=== PATIENT | male | born 1950 | race Caucasian/White ===

== ENCOUNTER → 2019-02-11 09:34 | Outpatient (CLI) | payer MEDICARE, OTHER, SELFPAY ==
[2019-02-11 11:18] LABS: Amphetamine Urine VISTA NEGATIVE (<1000 ng/mL); Barbiturate Urine VISTA NEGATIVE (< 200 ng/mL); Benzodiazepine Urine VISTA NEGATIVE (< 200 ng/mL); Cocaine Urine VISTA NEGATIVE (< 300 ng/mL); Ecstacy Urine VISTA NEGATIVE (< 500 ng/mL); Methadone Urine VISTA NEGATIVE (< 300 ng/mL); PCP Urine VISTA NEGATIVE (< 25 ng/mL); THC Urine VISTA NEGATIVE (< 50 ng/mL); Vista UDS pH Range 6
== END ==
PROVIDERS: Referring Provider Anesthesiology Pain Medicine; Visit Provider Anesthesiology Pain Medicine
DX: F11.20 Opioid dependence, uncomplicated (principal)
CPT/HCPCS: 36415; 80307

== ENCOUNTER → 2020-10-06 13:00 | Outpatient (CLI) | payer MEDICARE, OTHER, SELFPAY ==
[2020-09-23 15:57] VITALS: BMI 24.0
--- NOTE | 2020-10-06 13:02 | ECHOD_ITS ---
Reason For Study: VALVE REPLACEMENT EVAL Procedure This was a 2D Doppler, Color Flow transthoracic echocardiogram. Exam performed in department. Left Ventricle Normal LV size. Left ventricular systolic function is normal. The estimated ejection fraction is 55 %. Stage 2 diastolic dysfunction. Right Ventricle Normal RV size. Normal systolic function. Atria Normal left atrium. Normal right atrium. Mitral Valve Trivial eccentric mitral valve insufficiency. An annuloplasty ring is noted in the mitral position. Status post mitral valve repair. Tricuspid Valve Normal tricuspid valve. Mild tricuspid valve insufficiency. Pulmonary artery systolic pressure is 30 mmHg. Aortic Valve Normal aortic valve. Trisinus/trileaflet aortic valve. Pulmonic Valve Normal pulmonic valve. Great Vessels Normal aortic root. The pulmonary artery is normal size. Inferior vena cava collapse with sniff. Pericardium/Pleural No pericardial effusion. MMode/2D Measurements & Calculations LVIDd: 4.4 cm IVSd: 1.3 cm Ao root diam: 3.7 cm LVIDs: 3.4 cm LVPWd: 1.2 cm RVDd: 3.5 cm FS: 21.7 % LAV(MOD-bp): 71.2 ml LVAd ap4: 31.3 cm2 SV(MOD-sp4): 47.2 ml LAV(MOD-bp) Indexed: 36.0 ml/m2 EDV(MOD-sp4): 105.8 ml LAV(MOD-sp2): 72.6 ml EDV(sp4-el): 106.4 ml LAV(MOD-sp4): 63.0 ml LVAs ap4: 21.9 cm2 ESV(MOD-sp4): 58.6 ml ESV(sp4-el): 56.3 ml EF(MOD-sp4): 44.6 % EF(sp4-el): 47.1 % SV(sp4-el): 50.1 ml LA A4 area: 20.7 cm2 LA dimension(2D): 4.4 cm RA A4 area: 20.0 cm2 Time Measurements MV dec time: 0.24 sec Doppler Measurements & Calculations MV E max mario: 138.1 cm/sec Lat Peak E' Mario: 10.6 cm/sec Med Peak E' Mario: 9.2 cm/sec MV A max amrio: 69.7 cm/sec E/E' lat: 13.1 E/E' med: 15.1 MV E/A: 2.0 MV P1/2t max mario: 124.2 cm/sec Ao V2 max: 88.4 cm/sec LV V1 max: 61.5 cm/sec MV P1/2t: 107.2 msec Ao max P.1 mmHg LV V1 max P.5 mmHg MV dec slope: 339.4 cm/sec2 MVA(P1/2t): 2.1 cm2 PA V2 max: 99.3 cm/sec TR max mario: 254.0 cm/sec MV P1/2t-pr_phl: 101.0 msec TR max P.8 mmHg Interpretation Summary Status post mitral valve repair. Normal LV size. Left ventricular systolic function is normal. The estimated ejection fraction is 55 %. An annuloplasty ring is noted in the mitral position. Mild tricuspid valve insufficiency. Pulmonary artery systolic pressure is 30 mmHg. Stage 2 diastolic dysfunction. Ordering Physician: Selvin Rick Referring Physician: NIXON HUGGINS Performed By: Alecia Chen RDCS
== END ==
PROVIDERS: PCP Physician Assistant; Referring Provider Internal Medicine Cardiovascular Disease; Visit Provider Internal Medicine Cardiovascular Disease
DX: I34.0 Nonrheumatic mitral (valve) insufficiency (principal)
CPT/HCPCS: 93306

== ENCOUNTER → 2020-12-10 08:11 | Outpatient (CLI) | payer MEDICARE, OTHER, SELFPAY ==
[2020-09-23 15:57] VITALS: BMI 24.0
--- NOTE | 2020-12-10 08:16 | MRI_ITS ---
STUDY: MRI LUMBAR SPINE WITHOUT CONTRAST REASON FOR EXAM: Male, 70 years old. back pain, left leg pain TECHNIQUE: Standardized fat and water weighted pulse sequences were obtained in the sagittal and axial planes. COMPARISON: 01/17/2011 FINDINGS: T12-L1: Normal endplates. Normal disc height, hydration and morphology. Normal bilateral facet joints. Normal central canal and bilateral lateral recesses. Normal bilateral intervertebral neural foramina. Normal lumbar lordosis. There is no substantial scoliosis. Normal conus medullaris that terminates at the T12/L1. L1-2: Normal endplates. Normal disc height, hydration and morphology. Normal bilateral facet joints. Normal central canal and bilateral lateral recesses. Normal bilateral intervertebral neural foramina. L2-3: Normal endplates. Normal disc height, hydration and morphology. Normal bilateral facet joints. Normal central canal and bilateral lateral recesses. Normal bilateral intervertebral neural foramina. L3-4: Mild bilateral facet hypertrophy and ligament flavum hypertrophy. Mild bilobed disc protrusion produces mild spinal stenosis and mild bilateral neural foraminal stenosis. L4-5: Mild bilateral facet hypertrophy and ligament flavum hypertrophy. No change in the mild broad disc protrusion which produces mild spinal stenosis and mild bilateral neural foraminal stenosis. L5-S1: 2 mm retrolisthesis of L5 on S1 which is unchanged. Further loss of disc height but no disc protrusion or extrusion. Mild spinal stenosis with mild bilateral lateral recess stenosis and mild bilateral neural foraminal stenosis which is unchanged. Normal visualized sacral ala. Normal visualized paraspinous soft tissue structures. MRI/Spine Lumbar (Routine) IMPRESSION: Worsening degenerative disc disease L3/L4 but overall mild degenerative disc disease with no severe spinal stenosis or neural foraminal stenosis. Electronically Signed: Gregorio Patel MD at 10:23 EST Tel , Service support ,
== END ==
PROVIDERS: PCP Physician Assistant; Referring Provider Anesthesiology Pain Medicine; Visit Provider Anesthesiology Pain Medicine
DX: M54.9 Dorsalgia, unspecified (principal); M79.662 Pain in left lower leg
CPT/HCPCS: 72148

== ENCOUNTER 2020-12-24 13:56 | Inpatient (IN) | payer MEDICARE, OTHER, SELFPAY ==
[2020-09-23 15:57] VITALS: BMI 24.0
[2020-12-24 13:58] VITALS: BP 132/92; PULSE 98; RESP 16; TEMP 36.1; O2SAT 97; BMI 23.7
--- NOTE | 2020-12-24 14:24 | CT_ITS ---
We are attempting to reach an attending provider to discuss findings. An addendum with communication details will be sent when the communication is complete. STUDY: CT SOFT TISSUE NECK WITH CONTRAST REASON FOR EXAM: Male, 70 years old. Right neck swelling and amp; jaw pain x 3 days, now trouble swallowing, on antibiotics for dental abscess?? Hx mitral valve repair, COPD, ablation for arrhythmia, hypertension. RADIATION DOSAGE (If Supplied By Facility): CTDIvol = ( 16.36 ) mGy, DLP = ( 596.79 ) mGycm TECHNIQUE: The patient was scanned in a multi-detector CT scanner. High resolution transaxial imaging was performed following intravenous administration of IV 75mL Isovue-370. Sagittal and coronal images were reconstructed. Individualized dose optimization techniques were used for this CT. COMPARISON: None. FINDINGS: There is inflammation in the submental, sublingual and right submandibular subcutaneous and deep compartments with reactive lymph nodes. There are no fluid collections or masses. Tongue proper is normal. Airway is patent. Oral cavity is suboptimally evaluated due to metallic artifact from dental hardware. However, there is no dental abscess. Paranasal sinuses and orbits are clear. Vocal cords are normal. There is asymmetric density in the right vallecula, possibly mucus versus surface lesion. Epiglottis is otherwise normal. There is no cervical lymphadenopathy. Carotids and jugulars are patent. Salivary and thyroid gland are normal. Lungs are severely emphysematous. CT/Soft Tissue Neck WITH Contrast IMPRESSION: 1. Infection of submental, sublingual and right submandibular spaces. Possibility of impending Korey''s angina and airway obstruction is raised and emergency ENT consultation is advised. 2. No neck abscess. 3. Possible right vallecular lesion. ENT referral is advised for endoscopy to evaluate for mucosal disease. Electronically Signed: Barbie Milner MD at 16:10 EST Tel , Service support ,
--- NOTE | 2020-12-24 14:43 | ED.VISSUMM ---
- ER Visit Summary Date of Service: 12/24/20 Chief Complaint: Dental pain jaw swelling History of Present Illness: The patient is a 70 M who presents with dental pain and jaw swelling that has been getting worse over the past 5 days. Patient describes the pain as aching. Patient states the pain is over the right lower jaw. Patient states it is gradually gotten worse. Patient states she has been taking Keflex which his dentist prescribed for the past 3 days. Patient states his pain improves with ibuprofen. Patient also admits to some hot and cold sensitivity. Patient denies any fevers or chills. Patient states he was having some difficulty swallowing today. Physical Examination: Vital signs are stable. Patient is afebrile. Patient is in no acute distress. Oral mucosa is pink and moist. Oropharynx is clear. Airway is patent. There is tenderness to percussion over the right lower molars. There is some edema in this area. There is no fluctuance over the gingiva. Neck is supple. Trachea is midline. There is some mild erythema and tenderness over the right lower jaw. There is some minimal tenderness in the sublingual area. There is no induration. Heart was regular rate and rhythm. Lungs are clear and equal bilaterally. Cranial nerves II through XII are intact. There are no focal motor or sensory deficits. Test Results: CBC and basic metabolic profile were obtained were within normal limits. CT scan of the soft tissue neck is ordered and is pending. Emergency Department Course and Treatment: Patient was given a dose of clindamycin here due to his penicillin allergy. Disposition: [] Impression: Dental abscess This note was generated with [employer] dictation software. It may contain incorrect words, spelling, and punctuation that were not noted in review of the chart prior to signing ED Disposition - Plan for ED Patient: Disposition: Home or Assisted Living Diagnosis: Dental abscess Instructions: ED Dental Abscess Prescriptions: Clindamycin HCl [Cleocin] 300 mg PO Q6H #40 cap Prescription Printed Referrals: Lidia Lundy PA [Primary Care Provider] - Additional Instructions: Follow-up with your dentist in 3 to 5 days.
[2020-12-24 14:53] LABS: Absolute Lymphocyte Count 1.21 X10^3/uL (0.83-4.51); Absolute Neutrophil Count 7.2 X10^3/uL (2.0-7.7); Basophil# 0.03 X10^3/uL; Basophil% 0.3 % (0-1); Eosinophil# 0.08 X10^3/uL; Eosinophils% 0.8 % (0-5); Hematocrit 39.8 % (40-54); Hemoglobin 13.2 g/dL (13.0-16.5); Lymphocyte # 1.21 X10^3/ul (4.0); Lymphocyte % 12.6 % (19-41); Mean Corp Hgb Conc 33.2 g/dL (32-36); Mean Corpuscular Volume 90.5 fL (80-94); Mean Platelet Vol. 8.9 fl (6.2-12.0); Monocyte# 1.02 X10^3/uL; Monocyte% 10.6 % (0-10); NRBC Flagged by Analyzer 0 % (0-5); Neutrophil # 7.23 X10^3/uL (2.7-7.7); Neutrophil % 75.5 % (47-70); Platelet Count 249 K/mm3 (150-450); RBC Distribution Width CV 12.3 % (11.6-14.6); RBC Distribution Width SD 40.9 fl (35.1-43.9); White Blood Count 9.6 K/mm3 (4.4-11.0)
[2020-12-24 15:07] LABS: Anion Gap 5 (5-15); BUN 12 mg/dL (7-18); BUN/Creat Ratio 14.3 RATIO (10-20); Calcium,Total 9.1 mg/dL (8.5-10.1); Chloride 103 mmol/L (98-107); Creatinine, Serum 0.84 mg/dL (0.70-1.30); EST Glomerular Filtration Rate 97 mL/min (>60); Est Glom Filt Rate - Afr Amer 117 mL/min (>60); Estimated Creatinine Clearance 89.64 ml/min; Glucose 101 mg/dL (74-106); Potassium 3.9 mmol/L (3.5-5.1); Sodium Level 138 mmol/L (136-145)
[2020-12-24] MEDS: Ondansetron 4 MG/2 ML Vial IV (16:38)
[2020-12-24] MEDS: morphine 8 MG/ML Syringe IV (16:38)
[2020-12-24 16:46] VITALS: BP 134/90; PULSE 85; RESP 16; O2SAT 94
[2020-12-24 17:41] VITALS: BP 132/78; PULSE 84; RESP 16; TEMP 37.2; O2SAT 100
--- NOTE | 2020-12-24 17:52 | HP.PCM_ITS ---
Problem List (1) Odontogenic infection of jaw Status: Acute History of Present Illness Date of Admission: 12/24/20 Chief Complaint: Joint swelling and pain redness x 3 days The patient is a 70 year old M with a history of root canal treatment to the last 2 teeth of the right lower jaw about a year ago. Early last week began having discomfort and throbbing involving the teeth and jaw on that same side. Presented to his dentist 3 days ago and was prescribed antibiotics [Keflex], however symptoms have continued to worsen. He admits to some change in his voice/dysphonia as well as difficulty swallowing solids. He has been able to swallow liquids difficulty. He denies any difficulty breathing or noisy breathing. Questionable fever. Denies any chills or rigors. [] Past Medical History Past Medical History (Chronic Problems): Chronic Problems (Last Reviewed 09/23/20 @ 16:[address] Selvin Rick MD) Nonrheumatic mitral (valve) insufficiency (Chronic) History of mitral valve repair (Chronic 03/08/04) MVR repair after a quadrangular resection and application of a 28mm band and cryoablation of pulmonary vein 03/08/04 Paroxysmal atrial fibrillation (Chronic) Essential (primary) hypertension (Chronic) HLD (hyperlipidemia) (Chronic) Nicotine dependence (Chronic) Medical History: Medical History (Last Reviewed 09/23/20 @ 16:[address] Selvin Rick MD) Nonrheumatic mitral (valve) insufficiency (Chronic) I34.0 Paroxysmal atrial fibrillation (Chronic) I48.0 Essential (primary) hypertension (Chronic) I10 HLD (hyperlipidemia) (Chronic) E78.5 Nicotine dependence (Chronic) F17.200 Allergies amoxicillin [From Augmentin] Adverse Reaction (Verified 12/24/20 13:58) diarrhea clavulanic acid [From Augmentin] Adverse Reaction (Verified 12/24/20 13:58) diarrhea Home Medications: Ambulatory Orders Medication Instructions Recorded cycloBENZAPRine HCl [Flexeril] 10 mg PO DAILY 04/13/17 dextroamphetamine-amphetamine 20 20 mg PO DAILY #30 tab 08/13/19 mg tablet metoprolol succinate 50 mg 50 mg PO DAILY #90 tab 09/20/20 tablet,extended release 24 hr aspirin 81 mg tablet,delayed 81 mg PO .QOD tab 09/23/20 release losartan 100 mg tablet 100 mg PO DAILY #90 tab 09/23/20 meloxicam 15 mg tablet 15 mg PO DAILY tab 09/23/20 Cephalexin [Keflex] 500 mg PO Q8 12/24/20 Cetirizine HCl [Zyrtec] 10 mg PO DAILY 12/24/20 Cholecalciferol (Vitamin D3) 5,000 unit PO DAILY 12/24/20 [Vitamin D3] Clindamycin HCl [Cleocin] 300 mg PO Q6H #40 cap 12/24/20 Hydrochlorothiazide [Hctz] 12.5 mg PO DAILY 12/24/20 Multivitamin with Minerals 1 ea PO 12/24/20 [Multiple Vitamin] Surgical History: Surgical History (Last Reviewed 09/23/20 @ 16:[address] Selvin Rick MD) History of mitral valve repair (Chronic) Onset Date: 03/08/04 Z98.890 MVR repair after a quadrangular resection and application of a 28mm band and cryoablation of pulmonary vein 03/08/04 Smoking Status: Former smoker Review of Systems Constitutional: Denies: Chills, Weakness, Fatigue Eyes: Denies: Blurred vision HEENT: Reports: Difficulty Swallowing, Head Aches Cardiovascular: Denies: Chest Pain Respiratory: Denies: Cough Gastrointestinal: Denies: Abdominal Pain Comment: All other systems reviewed and essentially negative. VTE Information - Inpt Only VTE Present on Admission: No VTE Pharm Prophylaxis ordered?: Yes Patient Problems: Active and Suspected Problems (Last Reviewed 09/23/20 @ 16:[address] Selvin Rick MD) Dental abscess (Acute) Odontogenic infection of jaw (Acute) - Physical Exam Vitals/I&O's: Vital Signs Temp Pulse Resp BP Pulse Ox 99.0 F 84 16 132/78 H 100 12/24/20 17:41 12/24/20 17:41 12/24/20 17:41 12/24/20 17:41 12/24/20 17:41 Oxygen Delivery Method Room Air Weight: 77.111 kg Body Mass Index (BMI) 23.7 Intake and Output for Last 24 Hours 12/22/20 12/23/20 12/24/20 23:59 23:59 23:59 Intake Total 62 / 62 Balance 62 / 62 General: Alert, Oriented x3, Cooperative, - - Appears mildly uncomfortable and in mild painful distress HEENT: - - Swelling of the right lower jaw with associated redness of the overlying skin extending down to the neck under the contralateral side as well. Tenderness to palpation in the submandibular and submental areas without any induration with spaces still compressible easily. Oral: Moist Mucosa, - - No inflammatory changes involving the oropharynx. Neck: - - Swelling of the right lower jaw with associated redness of the overlying skin extending down to the neck under the contralateral side as well. Tenderness to palpation in the submandibular and submental areas without any induration with spaces still compressible easily. Lungs: Clear to auscultation, Normal air movement Cardiovascular: Regular rate, Regular Rhythm, Normal S1, Normal S2, No murmurs, No Ectopic Activity, PMI Normal Abdomen: Soft Extremities: No clubbing, No cyanosis Skin: No rashes, No breakdown Musculoskeletal: No Muscle Wasting Neurological: Cranial nerves II-XII grossly intact Psych/Mental Status: Normal Affect, Appropriate, Alert and oriented to time, place, person, mood and affect Laboratory Results 12/24/20 14:45: WBC 9.6, RBC 4.40 L, Hgb 13.2, Hct 39.8 L, MCV 90.5, MCH 30.0, MCHC 33.2, RDW Std Deviation 40.9, RDW Coeff of Arely 12.3, Plt Count 249, MPV 8.9, Immature Gran % (Auto) 0.200, Neut % (Auto) 75.5 H, Lymph % (Auto) 12.6 L, Bledsoe % (Auto) 10.6 H, Eos % (Auto) 0.8, Baso % (Auto) 0.3, Absolute Neuts (auto) 7.2, Absolute Lymphs (auto) 1.21, Nucleated RBC % 0 12/24/20 14:45: Sodium 138, Potassium 3.9, Chloride 103, Carbon Dioxide 30.0, Anion Gap 5, BUN 12, Creatinine 0.84, Estim Creat Clear Calc 89.64, Est GFR (MDRD) Af Amer 117, Est GFR (MDRD) Non-Af 97, BUN/Creatinine Ratio 14.3, Glucose 101, Calcium 9.1 Current Medications Acetaminophen (Acetaminophen 325 Mg Tablet) 1,000 mg PO Q8 REMY Dexamethasone Sodium Phosphate (Dexamethasone 4 Mg/Ml Vial) 8 mg IV Q8H REMY Enoxaparin Sodium (Enoxaparin 40 Mg/0.4 Ml Syringe) 40 mg SC DAILY REMY Sodium Chloride () 250 mls @ 15 mls/hr IV .[id number] PRN PRN Reason: Saline Flush Last Infusion: 12/24/20 16:12 Dose: 0 mls/hr Documented by: Ampicillin Sodium/Sulbactam (Sodium 3 gm/ Sodium Chloride) 112 mls @ 150 mls/hr IV Q6 REMY Magnesium Hydroxide (Magnesium Hydroxide 30 Ml Udc) 30 ml PO DAILY PRN PRN PRN Reason: Constipation Melatonin (Melatonin 3 Mg Tablet) 3 mg PO QHS PRN PRN PRN Reason: INSOMNIA Morphine Sulfate (Morphine 2 Mg/Ml Syringe) 2 mg IV Q4H PRN PRN PRN Reason: Pain Score 6-10 Assessment/Plan All Active Problems (Last Reviewed 09/23/20 @ 16:[address] Selvin Rick MD) Dental abscess (Acute) Odontogenic infection of jaw (Acute) 1. Odontogenic infection with extension into the submandibular, submental and sublingual spaces. Possible Korey's angina. Start on IV antibiotics with Unasyn. Though no stridor, patient does have dysphonia, dysphagia and odynophagia. Will start patient on systemic steroids with IV dexamethasone. Monitor closely for signs and symptoms of airway compro mise. Manage other symptoms including pain. 2. History of mitral valve repair. Another reason to be very aggressive with treatment of infection of the sort. Inpatient E&M: 30202 Init Hosp L3
[2020-12-24 18:16] VITALS: BMI 24.3
[2020-12-24] MEDS: Acetaminophen 500 MG Tablet 1000 MG PO (19:19)
[2020-12-24] MEDS: dexAMETHasone 10 MG/ML Vial 8 MG IV (19:19)
[2020-12-24] MEDS: CLARIFY ORDER NOTE (23:07)
[2020-12-24 23:19] VITALS: O2SAT 91
[2020-12-24 23:33] VITALS: BP 99/69; PULSE 79; RESP 16; TEMP 36.9; O2SAT 91
[2020-12-25] MEDS: dexAMETHasone 10 MG/ML Vial 8 MG IV ×2 (01:10→09:16)
[2020-12-25] MEDS: Acetaminophen 500 MG Tablet 1000 MG PO ×2 (01:10→09:17)
[2020-12-25 01:19] VITALS: O2SAT 98
[2020-12-25 01:41] VITALS: BP 107/73; PULSE 72; RESP 16; TEMP 36.7; O2SAT 95
[2020-12-25 05:10] VITALS: O2SAT 98
[2020-12-25 07:22] VITALS: BP 110/77; PULSE 72; RESP 18; TEMP 36.4; O2SAT 96
[2020-12-25 07:27] LABS: Absolute Lymphocyte Count 0.58 X10^3/uL (0.83-4.51); Absolute Neutrophil Count 4.9 X10^3/uL (2.0-7.7); Hematocrit 40.3 % (40-54); Hemoglobin 13.6 g/dL (13.0-16.5); Lymphocyte # 0.58 X10^3/ul (4.0); Lymphocyte % 10.4 % (19-41); Mean Corp Hgb Conc 33.7 g/dL (32-36); Mean Corpuscular Hgb 30.8 pg (27.0-32.0); Mean Corpuscular Volume 91.2 fL (80-94); Monocyte# 0.08 X10^3/uL; Monocyte% 1.4 % (0-10); NRBC Flagged by Analyzer 0 % (0-5); Neutrophil # 4.91 X10^3/uL (2.7-7.7); Neutrophil % 87.7 % (47-70); POSITIVE DIFFERENTIAL YES; Platelet Count 269 K/mm3 (150-450); RBC Distribution Width CV 12.3 % (11.6-14.6); RBC Distribution Width SD 40.7 fl (35.1-43.9); Red Blood Count 4.42 M/mm3 (4.6-6.2); White Blood Count 5.6 K/mm3 (4.4-11.0)
[2020-12-25 07:29] LABS: Differential Indicated SCAN CRITERIA MET
[2020-12-25] MEDS: Enoxaparin 40 MG/0.4 ML Syringe SC (07:35)
[2020-12-25] MEDS: Aspirin E.C. 81 MG Tablet PO (07:36)
[2020-12-25] MEDS: hydroCHLOROthiazide 12.5mg 12.5 MG PO (07:36)
[2020-12-25 07:37] VITALS: PULSE 70
[2020-12-25] MEDS: Metoprolol(XL)Succ 50 MG Tablet PO (07:37)
[2020-12-25] MEDS: Losartan Potassium 100 MG Tablet PO (07:38)
[2020-12-25] MEDS: 0.9% Saline Lock 10 ML Syringe IV (09:17)
[2020-12-25 13:23] VITALS: BP 121/71; PULSE 80; RESP 20; TEMP 36.9; O2SAT 94
--- NOTE | 2020-12-25 13:30 | PCM.DC ---
- Discharge Diagnoses Current Active Problems: Current Active and Chronic Problems (Last Reviewed 09/23/20 @ 16:[address] Selvin Rick MD) Dental abscess (Acute) Odontogenic infection of jaw (Acute) You will use the following diet at home:: No restrictions - mechanical soft Call your doctor if you observe: Fever of 101 or Higher, Shortness of breath, - - difficulty swallowing. drooling. increased facial swelling. Instructions: ED Dental Abscess Allergies/Adverse Reactions: Allergies amoxicillin [From Augmentin] Adverse Reaction (Verified 12/24/20 13:58) diarrhea clavulanic acid [From Augmentin] Adverse Reaction (Verified 12/24/20 13:58) diarrhea Medications to take at Discharge cycloBENZAPRine HCl [Flexeril] 10 mg PO DAILY 04/13/17 dextroamphetamine-amphetamine 20 mg tablet 20 mg PO DAILY #30 tab 08/13/19 metoprolol succinate 50 mg tablet,extended release 24 hr 50 mg PO DAILY #90 tab 09/20/20 aspirin 81 mg tablet,delayed release 81 mg PO .QOD tab 09/23/20 losartan 100 mg tablet 100 mg PO DAILY #90 tab 09/23/20 Cetirizine HCl [Zyrtec] 10 mg PO DAILY 12/24/20 Cholecalciferol (Vitamin D3) [Vitamin D3] 5,000 unit PO DAILY 12/24/20 Hydrochlorothiazide [Hctz] 12.5 mg PO DAILY 12/24/20 Multivitamin with Minerals [Multiple Vitamin] 1 ea PO 12/24/20 Acetaminophen [Tylenol] 1,000 mg PO Q8H PRN tablet 12/25/20 Clindamycin HCl 300 mg PO Q8H #27 cap 12/25/20 Meloxicam 15 mg PO DAILY #0 tab 12/25/20 levoFLOXacin tablet [Levaquin tablet] 750 mg PO DAILY #9 tab 12/25/20 The following prescriptions were given: Clindamycin HCl 300 mg PO Q8H #27 cap Transmission Status: Pending to [facility]/pharmacy #[id number] levoFLOXacin tablet [Levaquin tablet] 750 mg PO DAILY #9 tab Transmission Status: Pending to [facility]/pharmacy #[id number] Primary Care Physician: Lidia Lundy PA [Primary Care Provider] - Within 1 Week Test Results: Test results from this visit will be discussed in further detail at your follow-up appointment, if applicable. Please Follow Up With: Tal Vines MD When: 12/26/2020, call in AM for same day appointment Please Follow Up With: Dentist,Your When: follow up next week. Proposed Discharge Date: 12/25/20
--- NOTE | 2020-12-25 13:32 | DS.PCM_ITS ---
Discharge Date and Diagnosis - Problem List Patient Problems: Active and Suspected Problems (Last Reviewed 09/23/20 @ 16:[address] Selvin Rick MD) Dental abscess (Acute) Odontogenic infection of jaw (Acute) Date of Admission: 12/24/20 Date of Discharge: 12/25/20 - Primary Discharge Diagnosis Acute Problems: Active Problems (Last Reviewed 09/23/20 @ 16:[address] Selvin Rick MD) Dental abscess (Acute) Odontogenic infection of jaw (Acute) - Secondary Discharge Diagnosis Chronic Problems: Chronic Problems (Last Reviewed 09/23/20 @ 16:[address] Selvin Rick MD) Nonrheumatic mitral (valve) insufficiency (Chronic) History of mitral valve repair (Chronic 03/08/04) MVR repair after a quadrangular resection and application of a 28mm band and cryoablation of pulmonary vein 03/08/04 Paroxysmal atrial fibrillation (Chronic) Essential (primary) hypertension (Chronic) HLD (hyperlipidemia) (Chronic) Nicotine dependence (Chronic) Hospital Course and Treatment Imaging Results: Clinical Impression(s) from Imaging Studies Soft Tissue Neck CT 12/24/20 14:24 IMPRESSION: 1. Infection of submental, sublingual and right submandibular spaces. Possibility of impending Korey''s angina and airway obstruction is raised and emergency ENT consultation is advised. 2. No neck abscess. 3. Possible right vallecular lesion. ENT referral is advised for endoscopy to evaluate for mucosal disease. Electronically Signed: Barbie Milner MD at 16:10 EST Tel , Service support , ADDENDUM: 12/24/20 2594 IMPRESSION: 1. Infection of submental, sublingual and right submandibular spaces. Possibility of impending Korey''s angina and airway obstruction is raised and emergency ENT consultation is advised. 2. No neck abscess. 3. Possible right vallecular lesion. ENT referral is advised for endoscopy to evaluate for mucosal disease. N.B. : The above information has been verbally conveyed by Barbie Milner MD to Ankit Du MD, on 12/24/2020 16:17:10 (ET). Electronically Signed: Barbie Milner MD at 16:10 EST Tel , Service support , Operations: None Procedures: None Summary of Care Provided: The patient is a 70 year old M presents with pain and swelling in his mouth and face. Began about a week ago on the right side with pain in his teeth. Saw his dentist and prescribed Keflex, however patient got worse. Presented to the emergency room as he was having difficulty swallowing solids. Patient had a CAT scan that showed infection of the submental, sublingual and right submandibular spaces. Concern for impending Korey's angina and airway obstruction. There is noted possible right vallecular lesion. I saw the patient on the seventh and patient noted subjective improvement, decreased facial swelling and no trismus. Patient had been started on ampicillin/sulbactam and as well as dexamethasone. On exam, patient had a sublingular lesion that had purulence at the tip but patient stated that symptomatically felt much better. No woody appearance to the sublingual area. Patient's diet was advanced to mechanical soft and has tolerated that well. Patient was seen reading the newspaper with no respiratory distress nor any conversational dyspnea. Did have some submandibular lymphadenopathy and tenderness. I did discuss the patient's case with Dr. Layton, of otolaryngology. Both agreed no acute intervention is necessary at this time. He said he would be happy to see the patient in the office on the eighth. Patient will be provided information to follow-up with Dr. Harris on the . Patient will need to call to set up an appointment. Patient has been on ampicillin/sulbactam during his hospitalization, however patient has not noted allergy to amoxicillin clavulanic acid. Unclear if this is true allergy but given that, we will not discharge patient with Augmentin but instead patient will be on clindamycin and levofloxacin for the next 9 days clear to 10-day course of antibiotics. Patient advised if he has worsening of his facial swelling, difficulty swallowing, shortness of breath to return to the emergency room. Patient also advised to follow-up with his dentist as likely etiology is dental infection. Patient was on dexamethasone here. Would not continue with additional steroids upon discharge. [] Patient Problems: Active and Suspected Problems (Last Reviewed 09/23/20 @ 16:[address] Selvin Rick MD) Dental abscess (Acute) Odontogenic infection of jaw (Acute) - Physical Exam Vitals/I&O's: Vital Signs Temp Pulse Resp BP Pulse Ox 36.9 C 80 20 H 121/71 H 94 12/25/20 13:23 12/25/20 13:23 12/25/20 13:23 12/25/20 13:23 12/25/20 13:23 Oxygen Flow Rate (L/min) 2 Oxygen Delivery Method Room Air Weight: 79.038 kg Body Mass Index (BMI) 24.3 Intake and Output for Last 24 Hours 12/23/20 12/24/20 12/25/20 23:59 23:59 23:59 Intake Total 174 / 886 1136 / 1136 Balance 174 / 886 1136 / 1136 Laboratory Results 12/24/20 14:45: WBC 9.6, RBC 4.40 L, Hgb 13.2, Hct 39.8 L, MCV 90.5, MCH 30.0, MCHC 33.2, RDW Std Deviation 40.9, RDW Coeff of Arely 12.3, Plt Count 249, MPV 8.9, Immature Gran % (Auto) 0.200, Neut % (Auto) 75.5 H, Lymph % (Auto) 12.6 L, Marathon % (Auto) 10.6 H, Eos % (Auto) 0.8, Baso % (Auto) 0.3, Absolute Neuts (auto) 7.2, Absolute Lymphs (auto) 1.21, Nucleated RBC % 0 12/24/20 14:45: Sodium 138, Potassium 3.9, Chloride 103, Carbon Dioxide 30.0, Anion Gap 5, BUN 12, Creatinine 0.84, Estim Creat Clear Calc 89.64, Est GFR (MDRD) Af Amer 117, Est GFR (MDRD) Non-Af 97, BUN/Creatinine Ratio 14.3, Glucose 101, Calcium 9.1 12/25/20 06:05: WBC 5.6, RBC 4.42 L, Hgb 13.6, Hct 40.3, MCV 91.2, MCH 30.8, MCHC 33.7, RDW Std Deviation 40.7, RDW Coeff of Arely 12.3, Plt Count 269, MPV 9.0, Immature Gran % (Auto) 0.500, Neut % (Auto) 87.7 H, Lymph % (Auto) 10.4 L, Marathon % (Auto) 1.4, Eos % (Auto) 0.0, Baso % (Auto) 0.0, Absolute Neuts (auto) 4.9, Absolute Lymphs (auto) 0.58 L, Nucleated RBC % 0 Current Medications Acetaminophen (Acetaminophen 500 Mg Tablet) 1,000 mg PO Q8H [facility] Last Admin: 12/25/20 09:17 Dose: 1,000 mg Documented by: Aspirin (Aspirin E.C. 81 Mg Tablet) 81 mg PO QODAY@0800 [facility] Last Admin: 12/25/20 07:36 Dose: 81 mg Documented by: Dexamethasone Sodium Phosphate (Dexamethasone 10 Mg/Ml Vial) 8 mg IV Q8H [facility] Last Admin: 12/25/20 09:16 Dose: 8 mg Documented by: Enoxaparin Sodium (Enoxaparin 40 Mg/0.4 Ml Syringe) 40 mg SC DAILY [facility] Last Admin: 12/25/20 07:35 Dose: 40 mg Documented by: Hydrochlorothiazide (Hydrochlorothiazide 12.5mg) 12.5 mg PO DAILY [facility] Last Admin: 12/25/20 07:36 Dose: 12.5 mg Documented by: Sodium Chloride () 250 mls @ 15 mls/hr IV .[id number] PRN PRN Reason: Saline Flush Last Infusion: 12/24/20 16:12 Dose: 0 mls/hr Documented by: Ampicillin Sodium/Sulbactam (Sodium 3 gm/ Sodium Chloride) 112 mls @ 150 mls/hr IV Q6 [facility] Last Infusion: 12/25/20 12:15 Dose: Infused Documented by: Losartan Potassium (Losartan Potassium 100 Mg Tablet) 100 mg PO DAILY [facility] Last Admin: 12/25/20 07:38 Dose: 100 mg Documented by: Magnesium Hydroxide (Magnesium Hydroxide 30 Ml Udc) 30 ml PO DAILY PRN PRN PRN Reason: Constipation Melatonin (Melatonin 3 Mg Tablet) 3 mg PO QHS PRN PRN PRN Reason: INSOMNIA Metoprolol Succinate (Metoprolol(Xl)Succ 50 Mg Tablet) 50 mg PO DAILY [facility] Last Admin: 12/25/20 07:37 Dose: 50 mg Documented by: Morphine Sulfate (Morphine 2 Mg/Ml Syringe) 2 mg IV Q4H PRN PRN PRN Reason: Pain Score 6-10 Non-Formulary Medication (Dextroamphetamine/Amphetamine [Dextroamp-Amphetamin 20 Mg Tab]) 20 mg PO DAILY [facility] Sodium Chloride (0.9% Saline Lock 10 Ml Syringe) 10 - 40 ml IV UD PRN PRN Reason: SALINE FLUSH Last Admin: 12/25/20 09:17 Dose: 10 ml Documented by: Discharge Diet: No Restrictions Discharge Activity: Return to Normal Activity Call your doctor if you observe: Fever of 101 or Higher, Shortness of breath, - - difficulty swallowing. drooling. increased facial swelling. Home Medications: Medications to take at Discharge cycloBENZAPRine HCl [Flexeril] 10 mg PO DAILY 04/13/17 dextroamphetamine-amphetamine 20 mg tablet 20 mg PO DAILY #30 tab 08/13/19 metoprolol succinate 50 mg tablet,extended release 24 hr 50 mg PO DAILY #90 tab 09/20/20 aspirin 81 mg tablet,delayed release 81 mg PO .QOD tab 09/23/20 losartan 100 mg tablet 100 mg PO DAILY #90 tab 09/23/20 Cetirizine HCl [Zyrtec] 10 mg PO DAILY 12/24/20 Cholecalciferol (Vitamin D3) [Vitamin D3] 5,000 unit PO DAILY 12/24/20 Hydrochlorothiazide [Hctz] 12.5 mg PO DAILY 12/24/20 Multivitamin with Minerals [Multiple Vitamin] 1 ea PO 12/24/20 Acetaminophen [Tylenol] 1,000 mg PO Q8H PRN tablet 12/25/20 Clindamycin HCl 300 mg PO Q8H #27 cap 12/25/20 Meloxicam 15 mg PO DAILY #0 tab 12/25/20 levoFLOXacin tablet [Levaquin tablet] 750 mg PO DAILY #9 tab 12/25/20 Following Prescriptions Were Given to Patient: Clindamycin HCl 300 mg PO Q8H #27 cap Transmission Status: Pending to [facility]/pharmacy #[id number] levoFLOXacin tablet [Levaquin tablet] 750 mg PO DAILY #9 tab Transmission Status: Pending to [facility]/pharmacy #[id number] Primary Care Physician: Lidia Lundy PA [Primary Care Provider] - Within 1 Week Please Follow Up With: Tal Vines MD When: 12/26/2020, call in AM for same day appointment Please Follow Up With: Dentist,Your When: follow up next week. Patient Instructions: ED Dental Abscess Disposition: Home Minutes spent on discharge:: 35 Patient Condition:: Good Medical Necessity - Tobacco Use Smoking Status: Former smoker Meaningful Use Info Meaningful Use Diagnoses (Choose all that apply): None applicable Inpatient E&M: 98190 Disch Hosp
== END 2020-12-25 14:48 | disposition home or self-care (01) | DRG 158 ==
LOC: ED 15:10 → MS3 17:33
PROVIDERS: Admitting Provider Internal Medicine; Emergency Provider Emergency Medicine; PCP Physician Assistant
DX: K04.7 Periapical abscess without sinus (principal); I48.20 Chronic atrial fibrillation, unspecified; M27.2 Inflammatory conditions of jaws; R13.10 Dysphagia, unspecified; R49.0 Dysphonia; I48.0 Paroxysmal atrial fibrillation; I34.0 Nonrheumatic mitral (valve) insufficiency; I10 Essential (primary) hypertension; E78.5 Hyperlipidemia, unspecified; Z88.0 Allergy status to penicillin; Z79.82 Long term (current) use of aspirin; Z79.899 Other long term (current) drug therapy; Z87.891 Personal history of nicotine dependence; Z95.2 Presence of prosthetic heart valve
CPT/HCPCS: 36415; 70491; 80048; 85025; 99284; J7050; Q9967; A4216; J0295; J2405

== ENCOUNTER 2021-12-22 16:23 | Outpatient (CLI) | payer MEDICARE, OTHER, SELFPAY ==
--- NOTE | 2021-12-22 16:28 | RAD_ITS ---
INDICATION: [facility] EXAMINATION/TECHNIQUE: X-RAY - XR Chest 2 Views COMPARISON: Rib x-rays 04/13/2017 FINDINGS: LINES/DEVICES: None. LUNGS: Increased lung volumes with air trapping and areas of hyperlucency consistent with emphysema. No abnormal interstitial pattern exemplified. No nodule, mass or pleural effusion. No pneumothorax. MEDIASTINUM AND CARDIOVASCULAR STRUCTURES: Normal size and contour of the cardiomediastinal silhouette. No evidence of pulmonary vascular congestion. There are sternotomy wires from prior thoracotomy. BONES AND SOFT TISSUES: No abnormality within limits of the exam. RAD/Chest PA and Lateral IMPRESSION: 1. No radiographic evidence of acute cardiopulmonary disease. 2. Moderate emphysema. Electronically Signed: Jay Sanchez DO at 21:12 EST ,
== END 2021-12-22 23:59 | disposition home or self-care (01) ==
LOC: RAD 16:26
PROVIDERS: PCP Physician Assistant; Referring Provider Physician Assistant Medical; Visit Provider Physician Assistant Medical
DX: R06.00 Dyspnea, unspecified (principal)
CPT/HCPCS: 71046

== ENCOUNTER 2021-12-29 07:39 | Outpatient (CLI) | payer MEDICARE, OTHER, SELFPAY ==
--- NOTE | 2021-12-29 09:11 | ECHOD_ITS ---
Reason For Study: Dyspnea/SOB Procedure This was a 2D Doppler, Color Flow transthoracic echocardiogram. Exam performed in department. Left Ventricle Normal LV size. Left ventricular systolic function is normal. The estimated ejection fraction is 55 %. No regional wall motion abnormalities noted. Right Ventricle Normal RV size. Normal systolic function. Atria Normal left atrium. Normal right atrium. Mitral Valve Mild (1+) eccentric mitral valve insufficiency. Status post mitral valve repair with annuloplasty ring. Tricuspid Valve Normal tricuspid valve. Mild tricuspid valve insufficiency. Pulmonary artery systolic pressure is 25 mmHg. Aortic Valve Trivial aortic valve insufficiency. Pulmonic Valve Normal pulmonic valve. Great Vessels Normal aortic root. The pulmonary artery is normal size. Normal inferior vena cava. Pericardium/Pleural No pericardial effusion. MMode/2D Measurements & Calculations LVIDd: 5.1 cm IVSd: 1.1 cm Ao root diam: 3.3 cm LVIDs: 3.6 cm LVPWd: 1.1 cm RVDd: 3.8 cm FS: 29.4 % LAV(MOD-bp): 59.9 ml LVAd ap4: 29.5 cm2 SV(MOD-sp4): 48.9 ml LAV(MOD-bp) Indexed: 29.7 ml/m2 LVLd ap4: 8.0 cm LAV(MOD-sp2): 68.8 ml EDV(MOD-sp4): 95.6 ml LAV(MOD-sp4): 50.6 ml EDV(sp4-el): 93.0 ml LVAs ap4: 19.2 cm2 LVLs ap4: 7.3 cm ESV(MOD-sp4): 46.7 ml ESV(sp4-el): 42.8 ml EF(MOD-sp4): 51.2 % EF(sp4-el): 54.0 % SV(sp4-el): 50.2 ml LA A4 area: 18.1 cm2 LA dimension(2D): 4.8 cm RA A4 area: 18.0 cm2 Time Measurements MV dec time: 0.28 sec Doppler Measurements & Calculations MV E max mario: 126.1 cm/sec Lat Peak E' Mario: 7.9 cm/sec Med Peak E' Mario: 7.0 cm/sec MV A max mario: 64.2 cm/sec E/E' lat: 16.0 E/E' med: 18.1 MV E/A: 2.0 MV V2 max: 128.3 cm/sec MV P1/2t max mario: 128.3 cm/sec Ao V2 max: 94.9 cm/sec MV max P.6 mmHg MV P1/2t: 82.4 msec Ao max P.6 mmHg MV V2 mean: 83.2 cm/sec Ao V2 mean: 68.4 cm/sec MV mean P.1 mmHg MV dec slope: 456.2 cm/sec2 Ao mean P.0 mmHg MV V2 VTI: 30.9 cm MVA(P1/2t): 2.7 cm2 Ao V2 VTI: 18.5 cm LV V1 max: 73.2 cm/sec PA V2 max: 82.8 cm/sec TR max mario: 224.8 cm/sec LV V1 max P.1 mmHg TR max P.2 mmHg ECHO/Echo Complete Interpretation Summary Status post mitral valve repair with annuloplasty ring. Normal LV size. Left ventricular systolic function is normal. The estimated ejection fraction is 55 %. Pulmonary artery systolic pressure is 25 mmHg. Compared to previous study, the left ventricular systolic function is the same. . Ordering Physician: Amanda Dominguez Referring Physician: Izaiah Lundy Performed By: Margaret Cotton RDCS, RVT
--- NOTE | 2021-12-29 09:58 | STRESSREP ---
Stress Test Report Exercise mild letter perfusion stress test. 71-year-old man with a history of dyspnea on exertion. Medications gabapentin losartan metoprolol aspirin. Stress protocol: Resting KG demonstrates normal sinus rhythm with a rate of 73 bpm normal intervals are noted resting blood pressure is 138/88 mmHg. The patient exercised according to regular Ravin protocol for total duration of 4 minutes. The maximum heart rate attained was 133 bpm which was 88% of max impact at heart rate the maximum workload was 7 metabolic equivalents. At rest there were no ST or T wave changes noted to suggest ischemia and at peak exercise upsloping ST changes were noted with did not meet the criteria for ischemia. No clinical angina was noted the test was terminated due to shortness of breath. The peak blood pressure is 170/104 mmHg which demonstrated hypertensive response to exercise. Myocardial perfusion protocol. 12.0 mCi of technetium 99m sestamibi was injected at rest. The patient exercised according to regular Ravin protocol for 4 minutes and at peak exercise 34.7 mCi of technetium 99m sestamibi was injected stress images were obtained stress and rest images were reconstructed and compared in the short axis vertical long and horizontal long axis. Gated images were also obtained. Perfusion SPECT analysis: Review of the stress images demonstrate normal uptake of tracer noted in all areas of the myocardium. The resting images similarly demonstrate normal uptake of tracer noted in all areas of the myocardium. No previous infarct is noted. Gated SPECT analysis: The gated ejection fraction is 56%. Conclusion: Normal exercise myocardial perfusion stress test at a moderate workload. Preserved ejection fraction.
== END 2021-12-29 23:59 | disposition home or self-care (01) ==
LOC: CVS 07:40
PROVIDERS: PCP Physician Assistant; Referring Provider Physician Assistant Medical; Visit Provider Physician Assistant Medical
DX: I34.0 Nonrheumatic mitral (valve) insufficiency (principal); R06.00 Dyspnea, unspecified
CPT/HCPCS: 78452; 93017; 93306; A9500; A4216

== ENCOUNTER → 2024-02-10 | Outpatient (CLI) | payer MEDICARE, OTHER, SELFPAY ==
--- NOTE | 2024-02-10 13:09 | ECHOD_ITS ---
Reason For Study: MV REPAIR HX Procedure This was a 2D Doppler, Color Flow transthoracic echocardiogram. Exam performed in department. Left Ventricle Normal LV size. Moderate concentric left ventricular hypertrophy. Left ventricular systolic function is normal. The estimated ejection fraction is 55 %. Stage 2 diastolic dysfunction. No regional wall motion abnormalities noted. Right Ventricle Normal RV size. Normal systolic function. Atria The left atrium is mildly enlarged. Normal right atrium. Mitral Valve Mild (1+) eccentric mitral valve insufficiency. Status post mitral valve repair with annuloplasty ring. Aortic Valve Trisinus/trileaflet aortic valve. Mild (1+) aortic valve insufficiency. Pulmonic Valve The pulmonic valve is not well visualized. Great Vessels Normal aortic root. The pulmonary artery is normal size. Normal inferior vena cava. Pericardium/Pleural No pericardial effusion. MMode/2D Measurements & Calculations LVIDd: 4.4 cm IVSd: 1.4 cm LAV(MOD-bp): 87.3 ml LVIDs: 3.5 cm LVPWd: 1.4 cm LAV(MOD-bp) Indexed: 43.8 ml/m2 RVDd: 4.3 cm FS: 20.2 % LAV(MOD-sp2): 90.4 ml LAV(MOD-sp4): 73.5 ml LVAd ap4: 31.0 cm2 SV(MOD-sp4): 63.8 ml SV(sp4-el): 65.5 ml LVLd ap4: 8.0 cm EDV(MOD-sp4): 102.9 ml EDV(sp4-el): 102.6 ml LVAs ap4: 17.8 cm2 LVLs ap4: 7.2 cm ESV(MOD-sp4): 39.1 ml ESV(sp4-el): 37.1 ml EF(MOD-sp4): 62.0 % EF(sp4-el): 63.8 % LA A4 area: 24.0 cm2 LA dimension(2D): 4.8 cm RA A4 area: 19.3 cm2 TAPSE: 1.5 cm Time Measurements MV dec time: 0.23 sec Doppler Measurements & Calculations MV E max mario: 126.7 cm/sec Lat Peak E' Mario: 7.7 cm/sec Med Peak E' Mario: 6.6 cm/sec MV A max mario: 65.4 cm/sec E/E' lat: 16.4 E/E' med: 19.3 MV E/A: 1.9 MV V2 max: 147.7 cm/sec Ao V2 max: 95.8 cm/sec MV max P.7 mmHg MV dec slope: 572.2 cm/sec2 Ao max P.7 mmHg MV V2 mean: 90.3 cm/sec Ao V2 mean: 61.7 cm/sec MV mean P.7 mmHg Ao mean P.8 mmHg MV V2 VTI: 36.3 cm Ao V2 VTI: 20.4 cm AV (velocity ratio): 0.80 LV V1 max: 77.8 cm/sec PA V2 max: 109.4 cm/sec LV V1 max P.4 mmHg PA V2 mean: 74.0 cm/sec LV V1 mean P.2 mmHg LV V1 mean: 48.8 cm/sec LV V1 VTI: 16.3 cm ECHO/Echo Complete Interpretation Summary Status post mitral valve repair with annuloplasty ring. Normal LV size. Left ventricular systolic function is normal. The estimated ejection fraction is 55 %. Moderate concentric left ventricular hypertrophy. Stage 2 diastolic dysfunction. Mild (1+) eccentric mitral valve insufficiency. Compared to previous study, the left ventricular systolic function is the same. . Ordering Physician: Sanchez Cotton Referring Physician: Sanchez Cotton Performed By: Shameka Teixeira RCS
== END | disposition home or self-care (01) ==
LOC: CVS 13:08
PROVIDERS: PCP Physician Assistant; Referring Provider Nurse Practitioner Family; Visit Provider Nurse Practitioner Family
DX: I34.0 Nonrheumatic mitral (valve) insufficiency (principal); Z98.890 Other specified postprocedural states
CPT/HCPCS: 93306